=== PATIENT | male | born 1960 | race Caucasian/White ===

== ENCOUNTER 2019-07-03 15:07 | Outpatient (CLI) | payer OTHER, SELFPAY ==
--- NOTE | 2019-07-03 15:09 | ECG_ITS ---
Measurements Intervals [place] Rate: 64 P: 46 OR: 144 QRS: -15 QRSD: 98 T: 10 QT: 403 QTc: 417 Interpretive Statements SINUS RHYTHM RSR' IN V1 OR V2, CONSIDER RIGHT VENTRICULAR HYPERTROPHY OR RIGHT VCD LEFT VENTRICULAR HYPERTROPHY CONSIDER HIGH LATERAL INFARCT, AGE INDETERMINATE BORDERLINE T WAVE ABNORMALITY- INFERIOR LEADS BASELINE ARTIFACT- II, III, AVF, V6 ABNORMAL ECG Electronically Signed On 07-03-2019 17:19:29 MEATMAN by Eliseo Cao D.O.
== END 2019-07-03 15:08 | disposition home or self-care (01) ==
LOC: ANHSURGERY 15:09
PROVIDERS: PCP Family Medicine; Visit Provider Orthopaedic Surgery
DX: Z01.810 Encounter for preprocedural cardiovascular examination (principal); I10 Essential (primary) hypertension; R94.31 Abnormal electrocardiogram [ECG] [EKG]
CPT/HCPCS: 93005

== ENCOUNTER 2019-07-10 00:09 | Day surgery (SDC) | payer OTHER, SELFPAY ==
[2019-07-02 10:30] VITALS: BMI 32.4
--- NOTE | 2019-07-03 08:03 | PM.IMHP ---
H&P: HPI History of Present Illness Chief complaint: Chondromalacia Patella Rt, Chondromalacia Lt Knee Narrative: Chief Complaint: see Reason for Visit (Left Knee pain ) Duration: years Severity: 0-10 pain scale (6) Exacerbating/relieving factors: relieving factors: (NSAIDS ) Review of Systems Review of Systems: All systems reviewed & are unremarkable except as noted in HPI and below Constitutional: Constitutional: Denies headache(s) and Denies weakness Eyes: Eyes: Denies blurry vision, Denies change in vision and Denies loss of vision ENT: Denies dizziness, Denies dry mouth, Denies headache(s) and Denies nasal congestion Cardiovascular: Cardiovascular: Denies chest pain, Denies syncope, Denies leg edema and Denies dyspnea on exertion Respiratory: Respiratory: Denies cough and Denies dyspnea on exertion Gastrointestinal: Gastrointestinal: Denies abdominal pain, Denies constipation and Denies diarrhea Genitourinary: Genitourinary: Denies urinary frequency Musculoskeletal: Musculoskeletal: Reports as per HPI and Denies numbness Integumentary/Breasts: Skin/Breast: Reports system reviewed and no additional complaints, except as docu Neurologic: Denies dizziness, Denies syncope, Denies headache(s), Denies loss of vision, Denies numbness and Denies weakness Psychiatric: Psychiatric: Reports no additional psychiatric complaints Endocrine: Endocrine: Reports no additional endocrine complaints Hematologic/Lymphatic: Hematologic/Lymphatic: Reports no additional hematologic/lymphatic complaints FORMERLY [facility], 1928–1983 Past Medical History Medical History Acute non-recurrent maxillary sinusitis BPH without obstruction/lower urinary tract symptoms Insomnia Knee pain Vision loss Vitamin D deficiency, unspecified Family History Family History Other Family history of cardiovascular disease Hypertension Social History Social History Smoking status: Never smoker Smoking end date: 06/03/92 Alcohol intake: never Meds Home Medications and Allergies Home Medications Medication Instructions Recorded Confirmed Type aspirin 81 mg tablet,delayed 81 mg PO DAILY 05/01/19 07/02/19 History release atorvastatin 40 mg tablet 40 mg PO DAILY 05/01/19 07/02/19 History cyanocobalamin (vitamin B-12) 2,500 mcg SUBLINGUAL DAILY 05/01/19 07/02/19 History 2,500 mcg sublingual tablet naproxen sodium 220 mg tablet 220 mg PO BID PRN #60 tablet 05/01/19 07/02/19 Rx cholecalciferol (vitamin D3) 25 2,000 unit PO DAILY cap 06/23/19 07/02/19 History mcg (1,000 unit) capsule metoprolol tartrate 25 mg tablet 25 mg PO BID tablet 06/23/19 07/02/19 History tadalafil 20 mg tablet 5 mg PO DAILY #6 tablet 06/23/19 07/02/19 Rx hyalur ac-chond sul-colg II-AA 1 cap PO DAILY 07/02/19 07/02/19 History [Hyaluronic Acid (chond-collgn)] zolpidem [Ambien] 10 mg PO PRN PRN 07/02/19 07/02/19 History Allergies Allergy/AdvReac Type Severity Reaction Status Date / Time vancomycin Allergy Mild ITCHING, Unverified 07/02/19 10:02 latex Allergy Unknown Itching Verified 07/02/19 10:39 Exam Narrative: Exam Narrative: Extrem General: Yes normal to inspection, Yes full ROM, Yes capillary refill normal, Yes no clubbing, cyanosis or edema, Yes no calf tenderness, Yes normal gait, No clubbing, No cyanosis, No edema and No muscle atrophy Right lower extremity: normal to inspection, full ROM, normal capillary refill, knee Details: normal to inspection and knee ligament exam normal; Negative for tenderness Location: patella and infrapatellar area, swelling, abnormal ROM Details: pain with active ROM during and pain with passive ROM during, Rosalva's Test Details: positive medially, abrasion and crepitus Location: patella and foot Details: normal capillary refill and normal to inspection; Negative for vascular
[2019-07-10] VITALS (10 sets, daily range): BP systolic 114–144; BP diastolic 73–85; PULSE 59–85; RESP 12–22; TEMP 36.1–36.9; O2SAT 92–100
--- NOTE | 2019-07-10 07:39 | WPDHPUPDATE1 ---
History and Physical Update Update Date/Time: 07/10/19 07:39 History and Physical has been reviewed, including an updated exam of the patient. There are NO changes in the patient's condition. Risks, benefits, and alternatives have been discussed and questions answered. Patient agrees to proceed with procedure.
[2019-07-10] MEDS: CELECOXIB 200 MG CAPSULE PO (11:40)
[2019-07-10] MEDS: LACTATED RINGERS 1,000 ML 30 ML IV CONT ×2 (11:43→13:52)
--- NOTE | 2019-07-10 12:16 | WPDANESEPPF ---
Anes - Initial Pre Proc Eval Procedure: Operation Date: 07/10/19 12:30 Proposed Procedures p Right Knee Arthroscopy, Proceed As Indicated, Left Knee Injection - Randy Garcia MD Date/Time: 07/10/19 12:16 Surgeon: Randy Garcia MD Pre Op Diagnosis: Chondromalacia Patella Rt, Chondromalacia Lt Knee Patient Data Age: 58 Gender: M Height: 1.71 m Weight: 90.3 kg Allergies Allergy/AdvReac Type Severity Reaction Status Date / Time vancomycin Allergy Mild ITCHING, Unverified 07/10/19 11:39 latex Allergy Unknown Itching Verified 07/10/19 11:39 Home Medications Medication Instructions Recorded Confirmed Type aspirin 81 mg tablet,delayed 81 mg PO DAILY 05/01/19 07/10/19 History release atorvastatin 40 mg tablet 40 mg PO DAILY 05/01/19 07/02/19 History cyanocobalamin (vitamin B-12) 2,500 mcg SUBLINGUAL DAILY 05/01/19 07/02/19 History 2,500 mcg sublingual tablet naproxen sodium 220 mg tablet 220 mg PO BID PRN #60 tablet 05/01/19 07/02/19 Rx cholecalciferol (vitamin D3) 25 2,000 unit PO DAILY cap 06/23/19 07/02/19 History mcg (1,000 unit) capsule metoprolol tartrate 25 mg tablet 25 mg PO BID tablet 06/23/19 07/02/19 History tadalafil 20 mg tablet 5 mg PO DAILY #6 tablet 06/23/19 07/02/19 Rx hyalur ac-chond sul-colg II-AA 1 cap PO DAILY 07/02/19 07/02/19 History [Hyaluronic Acid (chond-collgn)] zolpidem [Ambien] 10 mg PO PRN PRN 07/02/19 07/02/19 History ECG: Date of Service: 07/03/19 Procedure(s): CA 12 lead EKG Accession Number(s): [id number] cc: ~ Measurements Intervals [place] Rate: 64 P: 46 AR: 144 QRS: -15 QRSD: 98 T: 10 QT: 403 QTc: 417 Interpretive Statements SINUS RHYTHM RSR' IN V1 OR V2, CONSIDER RIGHT VENTRICULAR HYPERTROPHY OR RIGHT VCD LEFT VENTRICULAR HYPERTROPHY CONSIDER HIGH LATERAL INFARCT, AGE INDETERMINATE BORDERLINE T WAVE ABNORMALITY- INFERIOR LEADS BASELINE ARTIFACT- II, III, AVF, V6 ABNORMAL ECG Electronically Signed On 07-03-2019 17:19:29 ENVIRONMENTAL HEALTH SAFETY ENGINEER by Eliseo Cao D.O. Dictated By: Eliseo Cao DO 07/03/19 1611 Patient hx anesthesia problems: none Family hx anesthesia problems: none [facility] Past Medical History Medical History (Updated 07/10/19 @ 12:17 by Noble Blanchard MD) Acute non-recurrent maxillary sinusitis Body mass index (bmi) 32.0-32.9, adult (02/11/19) BPH without obstruction/lower urinary tract symptoms Coronary artery disease involving [place] coronary artery of [place] heart without angina pectoris Essential (primary) hypertension Insomnia Knee pain Mixed hyperlipidemia Vision loss Vitamin D deficiency, unspecified Surgical History Surgical History (Updated 07/10/19 @ 12:17 by Noble Blanchard MD) History of coronary artery stent placement Family History Family History Other Family history of cardiovascular disease Hypertension Social History Social History Smoking status: Never smoker Smoking end date: 06/03/92 Alcohol intake: never Anes - Eval Final PreProcedure Day of Procedure 07/10/19 12:16 Patient weight: obese Heart: regular rate and rhythm Lungs: clear to auscultation and normal air movement Airway: Mallampati scale class II Neurological: alert and oriented Last oral intake: >/= 8 hours ASA classification: III Emergent: no Anesthetic plan: proceed Anesthesia type and monitoring: general GIVS Informed Consent: The patient's anesthetic plan and its attendant risks and benefits were discussed with the patient/family/POA. Questions were solicited and answers provided to the satisfaction of the patient/family/
--- NOTE | 2019-07-10 12:40 | WPDHPUPDATE1 ---
History and Physical Update Update Date/Time: 07/10/19 12:40 History and Physical has been reviewed, including an updated exam of the patient. There are NO changes in the patient's condition. Risks, benefits, and alternatives have been discussed and questions answered. Patient agrees to proceed with procedure. He will also have a left knee injection.
[2019-07-10] MEDS: ceFAZolin 2 GM/D5W 50 ML 2 GM/50 ML BAG IVPB (12:45)
[2019-07-10] MEDS: methylPREDNISolone ACETATE 80 MG/ML VIAL IM (13:10)
--- NOTE | 2019-07-10 19:10 | OP_ITS ---
DATE OF PROCEDURE: 07/10/2019 PREOPERATIVE DIAGNOSIS: Right knee chondromalacia patella. POSTOPERATIVE DIAGNOSIS: Right knee chondromalacia patella and medial and the lateral femoral condyle. PROCEDURE: Right knee arthroscopy with chondroplasty and left knee injection. ANESTHESIA: General. COMPLICATIONS: None. INDICATIONS: This is a 58-year-old gentleman who had a lot of pain in the patellofemoral joint due to degeneration and severe chondromalacia. He also had the same symptoms in the left knee. His exam was nearly equivalent to both sides. His MRI showed severe chondromalacia. He was unable to control his pain with nonoperative measures, so he was indicated for right knee arthroscopy and left knee injection. DESCRIPTION OF PROCEDURE: The patient was taken to the operating room in stable condition and placed in supine position. General anesthesia was induced and the right lower extremity was prepped sterilely from the toes to the thigh. Superomedial portal was used for an outflow cannula. Inferolateral port was used for the camera. The camera was introduced. There was grade 2 chondromalacia of the patella. There was grade 3 chondromalacia to the trochlea. The medial compartment was entered, there was no tear to the medial meniscus. There was no significant chondromalacia of the medial femoral condyle or the medial plateau. The ACL was identified and it was intact. Lateral compartment was entered, there was a large chondral defect to the lateral compartment on the main weightbearing surface of the femur. There was no significant chondromalacia to the tibia and there was some mild fraying to the lateral meniscus. A medial portal was established and the shaver was introduced and a chondroplasty was performed on the lateral femoral condyle and some minimal chondroplasty on the lateral tibial plateau region. Next, the trochlea underwent chondroplasty and the patella underwent chondroplasty. The engagement of the patella on the trochlea was observed and there was no tilt. There appeared to be no reason for lateral release at this point, so the wounds were irrigated thoroughly. The instruments were removed after irrigation of the knee joint and then the wounds were approximated with 4-0 nylon suture and sterile dressing was applied. The patient was extubated and sent to Recovery. Alisa I MT: Wilfrido
== END 2019-07-10 16:33 | disposition home or self-care (01) ==
PROVIDERS: PCP Family Medicine; Visit Provider Orthopaedic Surgery
PROC: (CPT 29870; principal; 2019-07-10 12:30)
DX: M94.261 Chondromalacia, right knee (principal); M25.562 Pain in left knee; I10 Essential (primary) hypertension; E78.2 Mixed hyperlipidemia; I25.10 Atherosclerotic heart disease of native coronary artery without angina pectoris; N40.0 Benign prostatic hyperplasia without lower urinary tract symptoms; E55.9 Vitamin D deficiency, unspecified; Z95.5 Presence of coronary angioplasty implant and graft; Z79.82 Long term (current) use of aspirin; E66.9 Obesity, unspecified; Z68.30 Body mass index [BMI] 30.0-30.9, adult
CPT/HCPCS: 29877; 20610; A9270; J0690; J1040; J2250; J2370; J2704; J3010; J7120

== ENCOUNTER 2021-09-04 00:24 | Day surgery (SDC) | payer OTHER, SELFPAY ==
[2021-08-23 12:05] VITALS: BMI 32.4
--- NOTE | 2021-09-04 07:26 | WPDGICN ---
Assessment and Plan Assessment and plan (1) Colon cancer screening: Code(s): Z12.11 - Encounter for screening for malignant neoplasm of colon Status: Acute Assessment and Plan: Colonoscopy with possible biopsy or polypectomy or cautery or injection of substances. GI Consult Note Consult date/time: 09/04/21 07:26 HPI: Laci Ferguson is a 61 year old male Who was referred for colon cancer screening. He did have a colonoscopy about 17 years ago. That exam was normal except he had some hemorrhoids. On occasion, if it takes him a while to have a bowel movement, he may see some blood when he wipes himself. Review of Systems Review of Systems: All systems reviewed & are unremarkable except as noted in HPI and below PMFSH Past Medical History Medical History Acute non-recurrent maxillary sinusitis BMI 31.0-31.9,adult Body mass index (bmi) 32.0-32.9, adult (02/11/19) BPH without obstruction/lower urinary tract symptoms PSA normal at 0.89 on 07/15/2021 Contact dermatitis Coronary artery disease involving [place] coronary artery of [place] heart without angina pectoris (02/26/17) stent in the LAD COVID-19 (06/03/20) Eczema Encounter for wellness examination in adult Essential (primary) hypertension GERD (gastroesophageal reflux disease) Insomnia Knee pain Mixed hyperlipidemia Total cholesterol 139, triglycerides 54, HDL 57, LDL 69 on 07/15/2021 Neoplasm of skin of face Vision loss Vitamin D deficiency, unspecified level normal at 53 on 07/15/2021 Surgical History Surgical History History of coronary artery stent placement (02/26/17) stent in the LAD Family History Family History Other Family history of cardiovascular disease Hypertension Social History Social History Smoking packs per day: 3 Smoking cigarettes per day: 60.0 Smoking status: Former smoker Tobacco type: cigarettes Smoking end date: 06/03/92 Alcohol intake: never Substance use: never Substance use type: does not use Living arrangements: alone Spiritual care concerns: No Meds Home Medications and Allergies Home Medications Medication Instructions Recorded Confirmed Type aspirin 81 mg tablet,delayed 81 mg PO DAILY 05/01/19 09/04/21 History release atorvastatin 40 mg tablet 40 mg PO DAILY 05/01/19 09/04/21 History cyanocobalamin (vitamin B-12) 2,500 mcg SUBLINGUAL DAILY 05/01/19 09/04/21 History 2,500 mcg sublingual tablet naproxen sodium 220 mg tablet 220 mg PO BID PRN #60 tablet 05/01/19 09/04/21 Rx cholecalciferol (vitamin D3) 25 2,000 unit PO DAILY cap 06/23/19 09/04/21 History mcg (1,000 unit) capsule metoprolol tartrate 25 mg tablet 25 mg PO BID tablet 06/23/19 09/04/21 History famotidine 20 mg tablet 20 mg PO BID PRN tablet 06/23/20 09/04/21 History zolpidem 10 mg tablet 10 mg PO . q.h.s. PRN #30 tablet 05/29/21 09/04/21 Rx tadalafil 20 mg tablet 5 mg PO DAILY #6 tablet 07/13/21 09/04/21 Rx triamcinolone acetonide 1 applic TOPICAL BID PRN 08/23/21 09/04/21 History Allergies Allergy/AdvReac Type Severity Reaction Status Date / Time vancomycin Allergy Mild ITCHING, Verified 09/04/21 07:36 latex Allergy Unknown Itching Verified 09/04/21 07:36 Exam Resp: Auscultation: clear to auscultation bilaterally Cardio: Rate: regular rate Rhythm: regular rhythm GI: GI Palp: Yes Soft to palpation and No Tenderness to palpation present (GI)
[2021-09-04 07:37] VITALS: BP 133/80; PULSE 82; RESP 16; TEMP 36.6; O2SAT 98; BMI 31.4
[2021-09-04] MEDS: LACTATED RINGERS 1,000 ML 150 ML IV CONT (08:00)
--- NOTE | 2021-09-04 08:12 | WPDANESEPPF ---
Anes - Initial Pre Proc Eval Procedure: Operation Date: 09/04/21 08:30 Proposed Procedures p Screening Colonoscopy - Rubin Alcantara MD Date/Time: 09/04/21 08:12 Surgeon: Rubin Alcantara MD Pre Op Diagnosis: neoplasm screening Patient Data Age: 61 Gender: M Height: 1.71 m Weight: 92.5 kg Last Vital Signs Temp 98 F 09/04/21 07:37 Pulse 82 09/04/21 07:37 Resp 16 09/04/21 07:37 BP 133/80 09/04/21 07:37 Pulse Ox 98 09/04/21 07:37 Allergies Allergy/AdvReac Type Severity Reaction Status Date / Time vancomycin Allergy Mild ITCHING, Verified 09/04/21 07:36 latex Allergy Unknown Itching Verified 09/04/21 07:36 Home Medications Medication Instructions Recorded Confirmed Type aspirin 81 mg tablet,delayed 81 mg PO DAILY 05/01/19 09/04/21 History release atorvastatin 40 mg tablet 40 mg PO DAILY 05/01/19 09/04/21 History cyanocobalamin (vitamin B-12) 2,500 mcg SUBLINGUAL DAILY 05/01/19 09/04/21 History 2,500 mcg sublingual tablet naproxen sodium 220 mg tablet 220 mg PO BID PRN #60 tablet 05/01/19 09/04/21 Rx cholecalciferol (vitamin D3) 25 2,000 unit PO DAILY cap 06/23/19 09/04/21 History mcg (1,000 unit) capsule metoprolol tartrate 25 mg tablet 25 mg PO BID tablet 06/23/19 09/04/21 History famotidine 20 mg tablet 20 mg PO BID PRN tablet 06/23/20 09/04/21 History zolpidem 10 mg tablet 10 mg PO . q.h.s. PRN #30 tablet 05/29/21 09/04/21 Rx tadalafil 20 mg tablet 5 mg PO DAILY #6 tablet 07/13/21 09/04/21 Rx triamcinolone acetonide 1 applic TOPICAL BID PRN 08/23/21 09/04/21 History Patient hx anesthesia problems: none Family hx anesthesia problems: none Results Review: All pre-operative results and documents have been reviewed as part of the pre-operative evaluation. [facility] Past Medical History Medical History Acute non-recurrent maxillary sinusitis BMI 31.0-31.9,adult Body mass index (bmi) 32.0-32.9, adult (02/11/19) BPH without obstruction/lower urinary tract symptoms PSA normal at 0.89 on 07/15/2021 Contact dermatitis Coronary artery disease involving [place] coronary artery of [place] heart without angina pectoris (02/26/17) stent in the LAD COVID-19 (06/03/20) Eczema Encounter for wellness examination in adult Essential (primary) hypertension GERD (gastroesophageal reflux disease) Insomnia Knee pain Mixed hyperlipidemia Total cholesterol 139, triglycerides 54, HDL 57, LDL 69 on 07/15/2021 Neoplasm of skin of face Vision loss Vitamin D deficiency, unspecified level normal at 53 on 07/15/2021 Surgical History Surgical History History of coronary artery stent placement (02/26/17) stent in the LAD Family History Family History Other Family history of cardiovascular disease Hypertension Social History Social History Smoking packs per day: 3 Smoking cigarettes per day: 60.0 Smoking status: Former smoker Tobacco type: cigarettes Smoking end date: 06/03/92 Alcohol intake: never Substance use: never Substance use type: does not use Living arrangements: alone Spiritual care concerns: No Anes - Eval Final PreProcedure Day of Procedure 09/04/21 08:12 Patient weight: obese Heart: regular rate and rhythm Lungs: clear to auscultation Airway: Mallampati scale class II Neurological: alert and oriented Last oral intake: >/= 8 hours ASA classification: III Emergent: no Anesthetic plan: proceed Anesthesia type and monitoring: general GIVS and standard monitoring Results Review: All pre-operative results and documents have been reviewed as part of the pre-operative evaluation. Informed Consent: The patient's anesthetic plan and its attendant risks and benefits were discussed with the patient/family/POA. Questions were solicited and
[2021-09-04 08:44] VITALS: BP 100/64; PULSE 66; RESP 16; O2SAT 94
[2021-09-04 08:54] VITALS: BP 103/63; PULSE 69; RESP 16; O2SAT 97
[2021-09-04 09:04] VITALS: BP 127/84; PULSE 70; RESP 16; O2SAT 97
== END 2021-09-04 09:12 | disposition home or self-care (01) ==
PROVIDERS: PCP Family Medicine; Visit Provider Internal Medicine Gastroenterology
PROC: 0DJD8ZZ Inspection of Lower Intestinal Tract, Via Natural or Artificial Opening Endoscopic (ICD-10-PCS; CPT 45378; principal; 2021-09-04 08:30)
DX: Z12.11 Encounter for screening for malignant neoplasm of colon (principal); K64.8 Other hemorrhoids; I10 Essential (primary) hypertension; I25.10 Atherosclerotic heart disease of native coronary artery without angina pectoris; E78.2 Mixed hyperlipidemia; N40.0 Benign prostatic hyperplasia without lower urinary tract symptoms; K21.9 Gastro-esophageal reflux disease without esophagitis; Z95.5 Presence of coronary angioplasty implant and graft; Z87.891 Personal history of nicotine dependence; Z79.82 Long term (current) use of aspirin; E66.9 Obesity, unspecified; Z68.31 Body mass index [BMI] 31.0-31.9, adult
CPT/HCPCS: 45378; J2704; J7120

== ENCOUNTER 2022-07-05 14:12 | Emergency (ER) | payer OTHER, SELFPAY ==
--- NOTE | 2022-07-05 14:17 | ED.URI ---
HPI - URI/Sore Throat General Chief Complaint: Upper Respiratory Infection Stated Complaint: SORE THROAT/SINUS/HOARSE Time Seen by Provider: 07/05/22 14:14 Source: patient and RN notes reviewed History of Present Illness HPI Narrative: Patient is a 61-year-old male who presents to urgent care with complaints of sore throat, hoarseness and mild congestion. Patient states has been ongoing since last and he has tried 1 [id number] allergy pill as of yesterday. Patient did have a negative COVID test at home. Denies any fever, nausea or vomiting. No other acute complaints. No acute distress noted. Patient aware of the plan of care. Some parts of this dictation were generated by voice recognition software and may contain typographical and/or grammatical inaccuracies. Related Data Home Medications Medication Instructions Recorded Confirmed aspirin 81 mg tablet,delayed 81 mg PO DAILY 05/01/19 07/05/22 release (Adult Aspirin Regimen) atorvastatin 40 mg tablet 40 mg PO DAILY 05/01/19 07/05/22 cyanocobalamin (vitamin B-12) 2,500 mcg sublingual DAILY 05/01/19 07/05/22 2,500 mcg sublingual tablet (Vitamin B-12) cholecalciferol (vitamin D3) 25 2,000 unit PO DAILY 06/23/19 07/05/22 mcg (1,000 unit) capsule metoprolol tartrate 25 mg tablet 25 mg PO BID 06/23/19 07/05/22 famotidine 20 mg tablet 20 mg PO BID PRN reflux 06/23/20 07/05/22 triamcinolone acetonide 0.5 % 1 applic topical BID PRN Rash 08/23/21 07/05/22 topical cream Allergies Allergy/AdvReac Type Severity Reaction Status Date / Time vancomycin Allergy Mild ITCHING, Verified 07/05/22 14:18 latex Allergy Unknown Itching Verified 07/05/22 14:18 Review of Systems Review of Systems: CONSTITUTIONAL: Denies fever, chills, or sweats. EYES: Denies visual changes, redness, or discharge. ENT: Reports postnasal drainage, congestion, hoarseness/sore throat CARDIOVASCULAR: Denies chest pain, palpitations, or edema. RESPIRATORY: Denies cough or dyspnea. GASTROINTESTINAL: Denies abdominal pain, nausea, vomiting, or diarrhea. GENITOURINARY: Denies dysuria or hematuria. SKIN: Denies rash or itching. MUSCULOSKELETAL: Denies back pain, joint pain, or myalgia. NEUROLOGIC: Denies headache, numbness, or weakness. All other systems reviewed are negative, except as documented in HPI. [facility] Past Medical History Medical History (Updated 07/05/22 @ 14:32 by NIRMAL Duran) Acute non-recurrent maxillary sinusitis BMI 31.0-31.9,adult Body mass index (bmi) 32.0-32.9, adult (02/11/19) BPH without obstruction/lower urinary tract symptoms PSA normal at 0.89 on 07/15/2021 Contact dermatitis Coronary artery disease involving [place] coronary artery of [place] heart without angina pectoris (02/26/17) stent in the LAD COVID-19 (06/03/20) Eczema Encounter for wellness examination in adult Essential (primary) hypertension GERD (gastroesophageal reflux disease) Insomnia Knee pain Mixed hyperlipidemia Total cholesterol 139, triglycerides 54, HDL 57, LDL 69 on 07/15/2021 Neoplasm of skin of face Obesity (BMI 30.0-34.9) Vision loss Vitamin D deficiency, unspecified level normal at 53 on 07/15/2021 Surgical History Surgical History History of coronary artery stent placement (02/26/17) stent in the LAD Family History Family History Other Family history of cardiovascular disease Hypertension Social History Social History Smoking packs per day: 3 Smoking cigarettes per day: 60.0 Smoking status: Former smoker Tobacco type: cigarettes Smoking end date: 06/03/92 Alcohol intake: never Substance use: never Substance use type: does not use Living arrangements: alone Spiritual care concerns: No Comments At the time of my signature, I reviewed and agree with the nursing past
[2022-07-05 14:20] VITALS: BP 150/87; PULSE 66; RESP 16; TEMP 37.1; O2SAT 98
== END 2022-07-05 14:38 | disposition home or self-care (01) ==
PROVIDERS: Emergency Provider Nurse Practitioner Family; PCP Family Medicine
DX: J02.9 Acute pharyngitis, unspecified (principal); Z87.891 Personal history of nicotine dependence; N40.0 Benign prostatic hyperplasia without lower urinary tract symptoms; I25.10 Atherosclerotic heart disease of native coronary artery without angina pectoris; Z86.16 Personal history of COVID-19; I10 Essential (primary) hypertension; K21.9 Gastro-esophageal reflux disease without esophagitis; E78.2 Mixed hyperlipidemia; E66.9 Obesity, unspecified; Z68.32 Body mass index [BMI] 32.0-32.9, adult; E55.9 Vitamin D deficiency, unspecified; Z95.5 Presence of coronary angioplasty implant and graft; Z85.828 Personal history of other malignant neoplasm of skin
CPT/HCPCS: 99213; G0463

== ENCOUNTER → 2022-07-26 17:27 | Outpatient (CLI) | payer OTHER, SELFPAY ==
--- NOTE | ~2022-07-26 | XR_ITS ---
EXAMINATION: XR lumbar spine min 4V DATE: 07/26/2022 17:49 INDICATION: Low back pain. TECHNIQUE: 5 views of lumbar spine were obtained. COMPARISON: None. FINDINGS: There is 6 degrees levocurvature of lumbar spine. There is 3 mm retrolisthesis of L2 on L3 and L3 on L4. There is mildly decreased disc height at L1-L2, moderately decreased disc height at L2- L3, L3-L4, and L4-L5, and severely decreased disc height at L5-S1. There are endplate osteophytes at all levels. There is multilevel mild to moderate facet joint osteoarthritis. IMPRESSION: 1. Severe lumbar spondylosis. Reviewed, dictated and finalized at location A. AID
--- NOTE | ~2022-07-26 | XR_ITS ---
EXAMINATION: XR hip LT 2V w AP pelvis DATE: 07/26/2022 17:50 INDICATION: Left hip pain. TECHNIQUE: An anteroposterior view of the pelvis and 2 views of left hip were obtained. COMPARISON: None. FINDINGS: There is lumbar levocurvature and severe spondylosis. No fracture. There is mild right hip osteoarthritis and severe left hip osteoarthritis. IMPRESSION: 1. Mild right hip osteoarthritis and severe left hip osteoarthritis. Reviewed, dictated and finalized at location A. BROKER
== END ==
PROVIDERS: PCP Family Medicine; Visit Provider Family Medicine
DX: M16.0 Bilateral primary osteoarthritis of hip (principal); M47.896 Other spondylosis, lumbar region
CPT/HCPCS: 72110; 73502

== ENCOUNTER 2023-04-21 15:15 | Emergency (ER) | payer OTHER, SELFPAY ==
--- NOTE | ~2023-04-21 | XR_ITS ---
EXAM: XR knee RT min 4V DATE: 04/21/2023 16:22 HISTORY: anterior knee pain swelling x's 1 week,no injury . COMPARISON: None available. FINDINGS: Normal mineralization. No fracture or dislocation. No lytic or blastic lesion. Moderate tr icompartmental osteoarthritis. No erosion or periosteal change. Soft tissues within normal limits. Mo derate effusion. IMPRESSION: No acute osseous finding in the right knee. Reviewed, dictated and finalized at location [facility]. ANGIOGRAPHY
[2023-04-21 15:41] VITALS: BP 160/80; PULSE 68; RESP 20; TEMP 36.4; O2SAT 100
--- NOTE | 2023-04-21 15:58 | ED.GENADULT ---
HPI - General Adult General Chief complaint: Extremity Injury, Lower Stated complaint: rt knee pain and swelling Time Seen by Provider: 04/21/23 15:59 Source: patient Mode of arrival: ambulatory Limitations: no limitations History of Present Illness HPI narrative: 8-year-old male patient presents to the [facility] with complaints of right knee pain for the past week. Patient states the knee has been swelling up and getting better off and on for the past week. Denies any trauma, falls or any other injury that he can remember to the knee. Patient states he has been taking Advil for the pain. Patient states the pain is worse when he bends the knee that when he extends it. Denies fevers body aches or chills Related Data Home Medications Medication Instructions Recorded Confirmed aspirin 81 mg tablet,delayed 81 mg PO DAILY 05/01/19 04/21/23 release (Adult Aspirin Regimen) atorvastatin 40 mg tablet 40 mg PO DAILY 05/01/19 04/21/23 cyanocobalamin (vitamin B-12) 2,500 mcg sublingual DAILY 05/01/19 04/21/23 2,500 mcg sublingual tablet (Vitamin B-12) cholecalciferol (vitamin D3) 25 2,000 unit PO DAILY 06/23/19 04/21/23 mcg (1,000 unit) capsule metoprolol tartrate 25 mg tablet 25 mg PO BID 06/23/19 04/21/23 famotidine 20 mg tablet 20 mg PO BID PRN reflux 06/23/20 04/21/23 triamcinolone acetonide 0.5 % 1 applic topical BID PRN Rash 08/23/21 04/21/23 topical cream Allergies Allergy/AdvReac Type Severity Reaction Status Date / Time latex AdvReac Mild Itching Verified 04/21/23 16:06 vancomycin AdvReac Mild Itching Verified 04/21/23 16:06 Review of Systems Review of Systems: CONSTITUTIONAL: Denies fever, chills, or sweats. EYES: Denies visual changes, redness, or discharge. ENT: Denies rhinorrhea, congestion, sore throat, or otalgia. CARDIOVASCULAR: Denies chest pain, palpitations, or edema. RESPIRATORY: Denies cough or dyspnea. GASTROINTESTINAL: Denies abdominal pain, nausea, vomiting, or diarrhea. GENITOURINARY: Denies dysuria or hematuria. SKIN: Denies rash or itching. MUSCULOSKELETAL: Denies back pain, joint pain, or myalgia. positive right knee pain NEUROLOGIC: Denies headache, numbness, or weakness. PSYCHIATRIC: Denies anxiety or depression. [facility] Past Medical History Medical History Acute non-recurrent maxillary sinusitis BMI 31.0-31.9,adult Body mass index (bmi) 32.0-32.9, adult (02/11/19) BPH without obstruction/lower urinary tract symptoms PSA normal at 0.89 on 07/15/2021 Chronic left hip pain right total hip replacement 10/15/2022. X-ray of the left hip and pelvis on 07/26/2022 reveals severe osteoarthritis of the left hip with mild osteoarthritis of the right hip. Contact dermatitis Coronary artery disease involving [place] coronary artery of [place] heart without angina pectoris (02/26/17) stent in the LAD COVID-19 (06/03/20) Eczema Right lower leg Encounter for wellness examination in adult Essential (primary) hypertension GERD (gastroesophageal reflux disease) Insomnia Knee pain Mixed hyperlipidemia Total cholesterol 139, triglycerides 54, HDL 57, LDL 69 on 07/15/2021. Total cholesterol 127, triglycerides 52, HDL 49, LDL 65 on 07/27/2022. Neoplasm of skin of face Obesity (BMI 30.0-34.9) Vision loss Vitamin D deficiency, unspecified level normal at 53 on 07/15/2021 Surgical History Surgical History History of coronary artery stent placement (02/26/17) stent in the LAD Family History Family History Other Family history of cardiovascular disease Hypertension Social History Social History Smoking packs per day: 3 Smoking cigarettes per day: 60.0 Smoking status: Former smoker Tobacco type: cigarettes Smoking end date: 06/03/92 Alcohol intake: never
== END 2023-04-21 16:42 | disposition home or self-care (01) ==
PROVIDERS: Emergency Provider Nurse Practitioner Family; PCP Family Medicine
DX: M25.461 Effusion, right knee (principal); Z87.891 Personal history of nicotine dependence; N40.0 Benign prostatic hyperplasia without lower urinary tract symptoms; I25.10 Atherosclerotic heart disease of native coronary artery without angina pectoris; Z95.5 Presence of coronary angioplasty implant and graft; Z86.16 Personal history of COVID-19; I10 Essential (primary) hypertension; K21.9 Gastro-esophageal reflux disease without esophagitis; E78.2 Mixed hyperlipidemia; Z85.828 Personal history of other malignant neoplasm of skin; E66.9 Obesity, unspecified; Z68.32 Body mass index [BMI] 32.0-32.9, adult; E55.9 Vitamin D deficiency, unspecified; Z79.82 Long term (current) use of aspirin
CPT/HCPCS: 73564; 99213; G0463

== ENCOUNTER 2024-01-13 16:02 | Outpatient (CLI) | payer OTHER, SELFPAY ==
--- NOTE | 2024-01-13 16:25 | ECG_ITS ---
Test Date: 2024-01-13 16:32:12 Measurements Intervals [place] Rate: 60 P: 46 [place]: 139 QRS: -12 QRSD: 105 T: 10 QT: 414 QTc: 416 Interpretive Statements SINUS RHYTHM INCOMPLETE RIGHT BUNDLE BRANCH BLOCK VOLTAGE CRITERIA FOR LVH [MEETS CRITERIA IN ONE OF: R(aVL), S(V1), R(V5), R(V5/V6)+S(V1)] No previous ECG available for comparison Electronically Signed On 01-14-2024 08:51:00 CDT by Julissa Go M.D.
[2024-01-13 17:32] LABS: Anion Gap 13 mmol/L (4-12); Blood Urea Nitrogen 18 mg/dL (9-20); Calcium 8.9 mg/dL (8.4-10.2); Carbon Dioxide 22 mmol/L (22-30); Chloride 102 mmol/L (98-107); Estimated Glomerular Filt Rate > 60; Glucose 93 mg/dL (65-110); Potassium 3.9 mmol/L (3.4-5.0); Sodium 137 mmol/L (137-145)
== END 2024-01-13 16:03 | disposition home or self-care (01) ==
LOC: ANHLAB 16:03
PROVIDERS: PCP Family Medicine; Visit Provider Family Medicine
DX: I10 Essential (primary) hypertension (principal); I45.10 Unspecified right bundle-branch block
CPT/HCPCS: 36415; 80048; 93005